=== PATIENT | male | born 1955 | race Caucasian/White ===

== ENCOUNTER 2023-01-12 13:36 | Outpatient (CLI) | payer MEDICARE, BC ==
[~2023-01-12 13:36] MED LIST: Iopamidol 370 76% 100 ML VIAL ONE
== END 2023-01-12 13:37 | disposition home or self-care (01) ==
LOC: CSHCT 13:36
PROVIDERS: ATTEND Family Medicine
DX: I78.0 Hereditary hemorrhagic telangiectasia (principal); K76.9 Liver disease, unspecified
CPT/HCPCS: 70544; 71275; 82565

== ENCOUNTER 2025-06-27 08:01 | Outpatient (CLI) | payer MEDICARE, BC ==
[2025-06-27] MEDS ORDERED: Iopamidol 300 61% 100 ML VIAL FS ONE (15:28)
== END 2025-06-27 08:02 | disposition home or self-care (01) ==
LOC: CSHCT 08:01
PROVIDERS: ATTEND Family Medicine
DX: R10.9 Unspecified abdominal pain (principal); N28.1 Cyst of kidney, acquired; D18.03 Hemangioma of intra-abdominal structures
CPT/HCPCS: 74178; Q9967